=== PATIENT | female | born 2005 | race African-American/Black ===

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

== ENCOUNTER 2024-01-16 22:13 | Emergency (ER) | payer SELFPAY ==
[2024-01-17] MEDS ORDERED: predniSONE 20 MG TAB ONE (00:19)
== END 2024-01-17 02:06 | disposition home or self-care (01) ==
LOC: ERS 22:13
DX: R05.9 Cough, unspecified (principal); R91.1 Solitary pulmonary nodule
CPT/HCPCS: 71046; 87428; J7512

== ENCOUNTER 2024-02-06 20:21 | Emergency (ER) | payer SELFPAY ==
[2024-02-06 21:12] LABS: #Basophils Less than 0.03 10x3/uL (0.0-0.2); %Basophils 0.3 % (0.0-1.0); %Eosinophils 2.8 % (0.0-10.0); %Lymphocytes 50.9 % (28.0-48.0); %Monocytes 4.2 % (0.0-4.0); %Neutrophils 41.7 % (31.0-61.0); Hematocrit 39.7 % (36.0-47.0); Hemoglobin 13.6 g/dL (12.0-16.0); Mean Corpuscular HGB CONC 34.3 g/dL (32.0-36.0); Mean Corpuscular Hemoglobin 30.6 pg (25.0-35.0); Mean Corpuscular Volume 89.2 fL (78.0-98.0); Mean Platelet Volume 9.3 fL (7.4-10.4); Platelet Count 307 10x3/uL (130-400); RBC Distribution Width 12.9 % (11.5-14.5); Red Blood Cell (RBC) Count 4.45 mill/uL (4.00-5.20)
[2024-02-06 21:19] LABS: Bacteria/HPF None Seen HPF (None Seen); Bilirubin Negative (Negative); Blood, Urine Negative (Negative); CAUTI Indications for Culture Pelvic or flank pain; Clarity Clear (Clear); Glucose, Urine (Dipstick) Normal (Negative); Ketone, Urine Negative (Negative); Leukocyte Negative Leu/uL (Negative); Nitrite Negative (Negative); Protein, Urine (Dipstick) 10 mg/dL (Neg-Trace); RBC/HPF 0-3 HPF (0-3); Specific Gravity, Urine 1.018 (1.002-1.036); Urobilinogen Normal mg/dL (Less than 2); WBC/HPF 0-3 HPF (0-3)
[2024-02-06 21:21] LABS: Urine Culture Reflex No No
[2024-02-06 21:30] LABS: ALT (SGPT) 11 U/L (8-55); AST (SGOT) 18 U/L (5-30); Albumin 4.3 g/dL (3.5-5.0); Alkaline Phosphatase 61 U/L (40-100); Anion Gap 11 mmol/L (10-20); BUN (Urea Nitrogen) 8 mg/dL (8.4-21.0); Bilirubin, Total 0.5 mg/dL (0.2-1.2); Calc. Creatinine Clearance 0 mL/min (70-130); Calcium 9.6 mg/dL (7.8-10.44); Carbon Dioxide 22 mmol/L (22-29); Chloride 107 mmol/L (98-107); Estimated GFR 106; Globulin 3.2 g/dL (2.4-3.5); Glucose 94 mg/dL (70-105); Potassium 4.2 mmol/L (3.5-5.1); Protein, Total 7.5 g/dL (6.0-8.3); Sodium 136 mmol/L (136-145)
[2024-02-06 21:31] LABS: BHCG - Serum Negative (NEGATIVE); Pregs Control Background? CLEAR/WHITE (CLR/WHITE); Pregs Control Bar Appear? YES (CONTROL BAR)
[2024-02-07 11:06] LABS: Chlamydia by PCR, Vaginal Swab Not Detected (NotDetected); GC by PCR, Vaginal Swab Not Detected (NotDetected)
== END 2024-02-07 | disposition home or self-care (01) ==
LOC: ERS 20:21
DX: N94.6 Dysmenorrhea, unspecified (principal)
CPT/HCPCS: 36415; 80053; 81001; 84703; 85025; 87480; 87491; 87510; 87591; 87660; 99284

== ENCOUNTER 2024-02-21 00:48 | Emergency (ER) | payer SELFPAY | END 2024-02-21 02:34 | disposition home or self-care (01) | LOC: ERS 00:48 | DX: G43.909 Migraine, unspecified, not intractable, without status migrainosus (principal); M79.672 Pain in left foot | CPT/HCPCS: 99283 ==